=== PATIENT | male | born 1970 | race Caucasian/White ===

== ENCOUNTER 2016-11-11 08:53 | Emergency (ER) | payer OTHER ==
[2016-11-11] MEDS ORDERED: Aspirin 325 MG Tab PO ONE (09:13)
[2016-11-11] MEDS ORDERED: Nitroglycerin 2% Oint 1 GM UD Packet TOP ONE (09:15)
[2016-11-11] MEDS ORDERED: Sodium Chloride 0.9% 1,000 ML IV SCH (09:15)
[2016-11-11] MEDS ORDERED: Enoxaparin 80 MG/0.8 ML Syringe SUBCUT ONE ×2 (10:39→11:26)
--- NOTE | 2016-11-11 10:45 | EDM.PDOC ---
ED HPI GENERAL MEDICAL PROBLEM - General Chief Complaint: Cardiovascular Problem Stated Complaint: CHEST PAIN SOB Time Seen by Provider: 11/11/16 08:55 Source of Information: Reports: Patient History Limitations: Reports: No Limitations - History of Present Illness INITIAL COMMENTS - FREE TEXT/NARRATIVE: 46 y.o.w.m. 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 Onset: Today Onset Date: 11/11/16 Onset Time: 03:00 Duration: Hour(s):, Getting Worse Location: Reports: Chest Quality: Reports: Burning, Dull, Pressure, Stabbing Severity: Moderate Improves with: Reports: None Worsens with: Reports: None Context: Reports: Other (tobacco HTN) Associated Symptoms: Reports: No Other Symptoms - Related Data Allergies Allergy/AdvReac Type Severity Reaction Status Date / Time ranitidine HCl [From Zantac] Allergy Rash Verified 11/11/16 09:23 Home Meds: Home Meds Amoxicillin 500 mg PO TID 05/15/15 [History] Past Medical History - Past Health History Medical/Surgical History: Denies Medical/Surgical History Social & Family History - Tobacco Use Smoking Status *Q: Current Every Day Smoker Years of Tobacco use: 20 Packs/Tins Daily: 1 Used Tobacco, but Quit: No Month Tobacco Last Used: June 16 2013 Second Hand Smoke Exposure: No - Caffeine Use Caffeine Use: Reports: Coffee Other Caffeine Use: 2-3 cups of coffee a day. - Alcohol Use Days Per Week of Alcohol Use: 4 Number of Drinks Per Day: 4 Total Drinks Per Week: 16 - Recreational Drug Use Recreational Drug Use: No ED ROS GENERAL - Review of Systems Review Of Systems: See Below Constitutional: Reports: No Symptoms HEENT: Reports: No Symptoms Respiratory: Reports: No Symptoms Cardiovascular: Reports: Chest Pain Endocrine: Reports: No Symptoms GI/Abdominal: Reports: No Symptoms : Reports: No Symptoms Musculoskeletal: Reports: No Symptoms Skin: Reports: No Symptoms Neurological: Reports: No Symptoms Psychiatric: Reports: No Symptoms Hematologic/Lymphatic: Reports: No Symptoms Immunologic: Reports: No Symptoms ED EXAM, GENERAL - Physical Exam Exam: See Below Exam Limited By: No Limitations General Appearance: Alert, WD/WN, Mild Distress Eye Exam: Bilateral Eye: Normal Inspection Ears: Normal External Exam Ear Exam: Bilateral Ear: Auricle Normal Nose: Normal Inspection, Normal Mucosa Throat/Mouth: Normal Inspection, Normal Lips Head: Atraumatic, Normocephalic Neck: Normal Inspection, Supple, Non-Tender, Full Range of Motion Respiratory/Chest: No Respiratory Distress, Lungs Clear, Normal Breath Sounds Cardiovascular: Normal Peripheral Pulses, Regular Rate, Rhythm, No Edema, No Gallop Peripheral Pulses: 2+: Femoral (L), Femoral (R) GI/Abdominal: Normal Bowel Sounds, Soft, Non-Tender, No Organomegaly (Male) Exam: Deferred Rectal (Males) Exam: Deferred Back Exam: Normal Inspection, Full Range of Motion Extremities: Normal Inspection, Normal Range of Motion, Non-Tender, No Pedal Edema Neurological: Alert, Oriented, CN II-XII Intact, Normal Cognition, Normal Gait Psychiatric: Normal Affect, Normal Mood Lymphatic: No Adenopathy EKG INTERPRETATION EKG Date: 11/11/16 Time: 09:00 Rhythm: NSR Rate (Beats/Min): 60 Adams: Normal P-Wave: Present QRS: Normal ST-T: Other (T waves in verst ant lat leads, possible new) QT: Normal Comparison: NA - No Prior EKG EKG Interpretation Comments: Pt was pain free after ASA and Nitro paste was applied. LALY was repeated, no change from previous ekg Course - Vital Signs Text/Narrative:: 46 y.o.w.m. 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 Labs: Troponin, D dimer nl ECG: T wave inversions ant/lat leads CXR: NAD IMPRESSON: ACS Tx: ASA, Nitro past, Lovenox 1mg/kg Reexam: Pain free Consultation: Dr. Nicole, [employer], Angiogram tomorrow (lovenox) Plan: Pt absolutely refuses to go by EMS to [place]. He will go straight to [place]. He was explained all the risks of pssible worsening of symptoms and possible on the way to [place]. He still refuses to go by EMS. No family is present. BP was 130/87, NTG paste is still on, iv is in his r forearm. Last Recorded V/S: Last Vital Signs Temp 36.7 C 11/11/16 12:30 Pulse 66 11/11/16 12:30 Resp 20 11/11/16 12:30 BP 142/72 H 11/11/16 12:30 Pulse Ox 98 11/11/16 12:30 - Orders/Labs/Meds Orders: Active Orders 24 hr Category Date Time Status Supplemental O2 [Oxygen Therapy, ED] [RC] ASDIRECTED Care 11/11/16 09:16 Active EKG 12 Lead [EK] Routine Ther 11/11/16 09:00 Ordered EKG 12 Lead [EK] Routine Ther 11/11/16 10:42 Ordered Labs: Laboratory Tests 11/11/16 11/11/16 11/11/16 Range/Units 09:20 09:20 09:20 WBC 5.8 (4.5-12.0) X10-3/uL RBC 5.22 (4.30-5.75) x10(6)uL Hgb 15.6 H (11.5-15.5) g/dL Hct 46.5 D (30.0-51.3) % MCV 89.1 (80-96) fL MCH 29.9 (27.7-33.6) pg MCHC 33.6 (32.2-35.4) g/dL RDW 13.3 (11.5-15.5) % Plt Count 169 (125-369) X10(3)uL MPV 8.7 (7.4-10.4) fL Neut % (Auto) 42.8 L (46-82) % Lymph % (Auto) 47.3 H (13-37) % Isabella % (Auto) 8.0 (4-12) % Eos % (Auto) 2 (1.0-5.0) % Baso % (Auto) 0 (0-2) % Neut # (Auto) 2.5 (1.6-8.3) # Lymph # (Auto) 2.7 (0.6-5.0) # Isabella # (Auto) 0.5 (0.0-1.3) # Eos # (Auto) 0.1 (0.0-0.8) # Baso # (Auto) 0.0 (0.0-0.2) # PT 10.2 (8.7-11.1) INR 1.01 (0.89-1.13) D-Dimer, Quantitative (100-400) ng/mL Sodium 135 (135-145) mmol/L Potassium 3.8 (3.5-5.3) mmol/L Chloride 104 (100-110) mmol/L Carbon Dioxide 26 (23-29) mmol/L BUN 17 D (5-20) mg/dL Creatinine 0.5 L (0.6-1.3) mg/dL Est Cr Clr Drug Dosing 180.68 mL/min Estimated GFR (MDRD) > 60 (>60) BUN/Creatinine Ratio 34.0 H (9-20) Glucose 136 H (80-116) mg/dL Calcium 8.8 (8.6-10.2) mg/dL Troponin I (0.02-0.06) NG/ML B-Natriuretic Peptide (0-100) pg/mL 11/11/16 11/11/16 11/11/16 Range/Units 09:20 09:30 09:30 WBC (4.5-12.0) X10-3/uL RBC (4.30-5.75) x10(6)uL Hgb (11.5-15.5) g/dL Hct (30.0-51.3) % MCV (80-96) fL MCH (27.7-33.6) pg MCHC (32.2-35.4) g/dL RDW (11.5-15.5) % Plt Count (125-369) X10(3)uL MPV (7.4-10.4) fL Neut % (Auto) (46-82) % Lymph % (Auto) (13-37) % Isabella % (Auto) (4-12) % Eos % (Auto) (1.0-5.0) % Baso % (Auto) (0-2) % Neut # (Auto) (1.6-8.3) # Lymph # (Auto) (0.6-5.0) # Isabella # (Auto) (0.0-1.3) # Eos # (Auto) (0.0-0.8) # Baso # (Auto) (0.0-0.2) # PT (8.7-11.1) INR (0.89-1.13) D-Dimer, Quantitative < 100 L (100-400) ng/mL Sodium (135-145) mmol/L Potassium (3.5-5.3) mmol/L Chloride (100-110) mmol/L Carbon Dioxide (23-29) mmol/L BUN (5-20) mg/dL Creatinine (0.6-1.3) mg/dL Est Cr Clr Drug Dosing mL/min Estimated GFR (MDRD) (>60) BUN/Creatinine Ratio (9-20) Glucose (80-116) mg/dL Calcium (8.6-10.2) mg/dL Troponin I 0.01 L (0.02-0.06) NG/ML B-Natriuretic Peptide 13 (0-100) pg/mL Meds: Medications Discontinued Medications Generic Name Dose Route Start Last Admin Trade Name Freq PRN Reason Stop Dose Admin Aspirin 325 mg 11/11/16 09:13 11/11/16 09:29 Aspirin PO 11/11/16 09:14 325 mg ONETIME ONE Administration Enoxaparin Sodium 79.37 mg 11/11/16 10:39 11/11/16 11:30 Lovenox SUBCUT 11/11/16 10:40 Not Given ONETIME ONE Enoxaparin Sodium 80 mg 11/11/16 11:26 11/11/16 11:27 Lovenox SUBCUT 11/11/16 11:27 80 mg ONETIME ONE Administration Sodium Chloride 1,000 mls @ 125 mls/hr 11/11/16 09:15 11/11/16 10:20 Normal Saline IV 125 mls/hr ASDIRECTED VIRI Administration Nitroglycerin 1 gm 11/11/16 09:15 11/11/16 09:29 Nitro-Bid 2% TOP 11/11/16 09:16 1 gm ONETIME ONE Administration Sodium Chloride 10 ml 11/11/16 11:08 11/11/16 10:20 Saline Flush FLUSH 10 ml ASDIRECTED PRN Administration Keep Vein Open Departure - Departure Time of Disposition: 12:00 Disposition: DC/Tfer to Other 70 Reason for Transfer *Q: Other (no contract clerk in this facility) Condition: Fair Clinical Impression: Acute coronary syndrome Referrals: Oumar Marte MD [Primary Care Provider] - Forms: ED Department Discharge - My Orders Last 24 Hours: My Active Orders 11/11/16 09:00 EKG 12 Lead [EK] Routine 11/11/16 09:16 Supplemental O2 [Oxygen Therapy, ED] [RC] ASDIRECTED 11/11/16 10:42 EKG 12 Lead [EK] Routine - Assessment/Plan Last 24 Hours: My Active Orders 11/11/16 09:00 EKG 12 Lead [EK] Routine 11/11/16 09:16 Supplemental O2 [Oxygen Therapy, ED] [RC] ASDIRECTED 11/11/16 10:42 EKG 12 Lead [EK] Routine
--- NOTE | 2016-11-11 10:52 | CR ---
INDICATION: Chest pain. CHEST: PA and lateral views of the chest were obtained 11/11/2016 and revealed the heart to be normal in size and shape overall, but with a double density at the right heart border, raising question of left atrial enlargement in this patient with history of chest pain. Degenerative changes are noted in the thoracic spine. An active infiltrate or effusion was not identified. IMPRESSION: 1. No acute process. 2. Possible left atrial enlargement. 3. DJD spine. MTDD
[2016-11-11] MEDS ORDERED: Sodium Chloride 0.9% 10 ML Syringe FLUSH PRN (11:08)
[2016-11-11] MEDS ORDERED: Heparin Sodium 5,000 Units/ML Vial IVPUSH STA (12:04)
[2016-11-11 13:01] VITALS: BP 142/72
== END 2016-11-11 13:25 | disposition other institution (70) ==
LOC: FB.ED 08:53
DX: I24.9 Acute ischemic heart disease, unspecified (principal); F17.200 Nicotine dependence, unspecified, uncomplicated; F10.10 Alcohol abuse, uncomplicated; Z88.8 Allergy status to other drugs, medicaments and biological substances
CPT/HCPCS: 36415; 71020; 80048; 83880; 84484; 85025; 85379; 85610; 93005; A9270; J1650; J7040; J7050; 96360; 96361; 96372; 99285

== ENCOUNTER 2016-11-25 07:36 | Day surgery (SDC) | payer OTHER ==
[~2016-11-25 07:36] MED LIST: Lactated Ringers 1,000 ML IV SCH; Sodium Chloride 0.9% 10 ML Syringe FLUSH PRN
[2016-11-25] MEDS ORDERED: Midazolam 1 MG/ML 2 ML SDV IV ONE (07:40)
[2016-11-25] MEDS ORDERED: Propofol 200 MG/20 ML SDV IV ONE (07:40)
[2016-11-25] MEDS ORDERED: fentaNYL 100 MCG/2 ML SDV IV ONE (07:40)
[2016-11-25] MEDS ORDERED: Lactated Ringers 1,000 ML IV ONE (07:40)
--- NOTE | 2016-11-25 10:23 | PCM.OPNOTE ---
- General Post-Op/Procedure Note Date of Surgery/Procedure: 11/25/16 Operative Procedure(s): egd with bx. c scope with bx Findings: gastroduodenitis esophagitis descending colon polyp rectal polyp Pre Op Diagnosis: abd and chest pain Post-Op Diagnosis: gastroduodenitis. esophagitis. descending colon polyp. rectal polyp Anesthesia Technique: MAC Primary Surgeon: Juan Alvarado Anesthesia Provider: Moon Jim Pathology: gastric duodenal distal esophagus rectal and descending colon polyp Complications: None Condition: Good Free Text/Narrative:: see dictation
[2016-11-25 11:45] VITALS: BP 125/79
--- NOTE | 2016-11-25 13:40 | OR ---
DATE OF OPERATION: 11/25/2016 SURGEON: Juan Alvarado MD PROCEDURE PERFORMED: Esophagogastroduodenoscopy with cold forceps biopsy and a C scope with cold forceps biopsy. PREOPERATIVE DIAGNOSIS: Abdominal pain and chest discomfort. POSTOPERATIVE DIAGNOSIS: Gastroduodenitis, esophagitis, descending colon polyp, and rectal polyp. INDICATIONS FOR PROCEDURE: This is a 46-year-old white male, who was referred with complaints of some diffuse abdominal pain but in addition was having some chest discomfort as well. The cardiac workup to this point has been negative. He was initially offered an EGD and colonoscopy, but opted only for the colonoscope to handle his lower abdominal pain. However, on the day of the procedure, he noted that his chest discomfort was getting worse and therefore requested an EGD and at the same time, he was offered both procedures. DESCRIPTION OF OPERATION: After an excellent IV sedation was administered, the bite block was inserted. The flexible endoscope was passed without difficulty down the patient's esophagus into the stomach. The stomach was insufflated, scope was passed through the pylorus to the second portion of the duodenum and slowly withdrawn. The following findings were noted in the duodenum, marked duodenitis specially in the first portion, biopsies were taken. Stomach, diffuse gastritis. The most severe was in the antral area and biopsies and photos were taken. Distal esophagus, evidence of esophagitis, and biopsies were taken. Also, there was a small thin plaque-like lesion that was also biopsied as well. This was just above the GE junction. The remainder of the esophageal exam was unremarkable. Our attention was then turned to the patient's colon. Digital rectal exam was performed. No marked abnormality was noted. The flexible colonoscope was then inserted and advanced without difficulty to the patient's cecum. The prep was excellent. The following findings were noted. Ascending colon, unremarkable. Transverse colon, unremarkable. Descending colon, a small polypoid lesion, biopsied with cold biopsy forceps and sent for permanent. Sigmoid, unremarkable. Rectum, another small polypoid lesion, biopsied with cold biopsy forceps and sent for permanent. The colon was deflated. Scope was removed. The patient tolerated the procedure well and was taken to recovery room in good condition. /[id number] /MODL
== END 2016-11-25 11:18 | disposition home or self-care (01) ==
LOC: FB.SDS 07:36
PROVIDERS: ATTEND Surgery
DX: D12.4 Benign neoplasm of descending colon (principal); K62.1 Rectal polyp; K20.9 Esophagitis, unspecified; K29.90 Gastroduodenitis, unspecified, without bleeding; F17.210 Nicotine dependence, cigarettes, uncomplicated; G71.0 Muscular dystrophy; Z88.8 Allergy status to other drugs, medicaments and biological substances; Z79.899 Other long term (current) drug therapy
CPT/HCPCS: 43239; 45380; 88305; 88313; 88342; J2250; J2704; J3010; J7120